=== PATIENT | male | born 1995 | race Caucasian/White ===

== ENCOUNTER 2018-03-04 20:14 | Emergency (ER) | payer MEDICAID ==
[~2018-03-04] VITALS: Ht 175.3 cm; Wt 72.6 kg
[2018-03-04 20:45] VITALS: BP 152/82
== END 2018-03-04 23:00 | disposition home or self-care (01) ==
LOC: ER 20:14
DX: J06.9 Acute upper respiratory infection, unspecified (principal); H10.9 Unspecified conjunctivitis
CPT/HCPCS: 71045